=== PATIENT | male | born 1965 | race Caucasian/White ===

== ENCOUNTER 2023-11-27 13:24 | Outpatient (CLI) | payer BC, SELFPAY ==
--- NOTE | ~2023-11-27 | MR_ITS ---
EXAMINATION: MR shoulder LT wo con DATE: 11/27/2023 14:58 INDICATION: Left shoulder pain TECHNIQUE: Magnetic resonance imaging (MRI) of the left shoulder was performed without intravenous co ntrast. Sequences included axial PD-weighted FS FSE and coronal oblique PD-weighted FS FSE. Patient una erminated the study due to pain and discomfort in the scanner prior to completion of the remaining 3 sequences. COMPARISON: None. FINDINGS: Evaluation is limited due to the absence of sagittal and nonfat saturated sequences. Coracoacromial arch: The acromion undersurface is curved in morphology (type II). The coracoacromial ligament is normal. M ild acromioclavicular osteoarthritis. Rotator cuff: Severe supraspinatus and moderate infraspinatus tendinopathy. There appears be some shallow fraying a long the both the bursal and articular sides of the supraspinatus tendon without a well-defined measu rable tear defect or significant loss of tendon thickness. The teres minor tendon is normal. Moderate subscapularis tendinopathy without definitive tear. Normal rotator cuff muscle bulk and signal. Biceps tendon, glenoid labrum and glenohumeral cartilage: The long head of the biceps tendon is not visualized and likely torn and retracted below the level of the intertubercular groove. There is a likely [place] complex with absent anterosuperior glenoid labr um and thickened cordlike middle glenohumeral ligament. There is a tear of the 12:00-9:00 position of the superior to posterior glenoid labrum. There is a band of tissue extending posterior inferiorly f rom the 12:30 position of the superior labrum likely representing a residual small intra-articular po rtion of the torn long head biceps tendon. Suggestion of some additional degeneration of the anteroin ferior labrum. There is partial thickness cartilage loss with smooth chondral surface along the poste rior third of the glenoid. Similar mild nonuniform partial-thickness cartilage loss with smooth chond ral surface along the inferomedial aspect of the humeral head. Fluid: Small glenohumeral joint effusion. There is moderate amount fluid in the subacromial/subdeltoid bursa consistent with bursitis. No loose osteochondral bodies. Bones/other: No fracture or pathologic marrow replacing process. There is a 2.6 x 1.0 x 1.9 cm macroscopic fat con taining intramuscular lipoma within the posterior deltoid muscle. IMPRESSION: 1. Limited incomplete study which was halted at patient request after completion of only 2 of the nor mal complement of 5 MR sequences. Interpretation of the findings on the 2 completed sequences is prov ided, acknowledging that there is a decreased sensitivity and specificity of the findings. 2. Severe supraspinatus and moderate subscapularis and infraspinatus tendinopathy with shallow articu lar sided and bursal sided fraying of the supraspinatus tendon without a clearly defined tear defect or significant loss of tendon thickness. 3. Tear of the superior to posterior glenoid labrum and likely degeneration at the anteroinferior lab rum. 4. Complete tear and distal retraction of the long head biceps tendon. A small torn segment of the in tra-articular portion of the tendon appears to remain attached to the glenoid anchor. 5. Mild glenohumeral and acromioclavicular osteophytes with small glenohumeral joint effusion. 6. Moderate subacromial/subdeltoid bursitis. Reviewed, dictated and finalized at location A. IMPRESSION: 1. Limited incomplete study which was halted at patient request after completio n of only 2 of the normal complement of 5 MR sequences. Interpretation of the f indings on the 2 completed sequences is provided, acknowledging that there is a decreased sensitivity and specificity of the findings. 2. Severe supraspinatus and m
== END 2023-11-27 13:25 | disposition home or self-care (01) ==
PROVIDERS: PCP Internal Medicine; Visit Provider Physician Assistant Surgical
DX: M75.52 Bursitis of left shoulder (principal); M19.012 Primary osteoarthritis, left shoulder; M25.412 Effusion, left shoulder
CPT/HCPCS: 73221